=== PATIENT | male | born 1945 | race Caucasian/White ===

== ENCOUNTER 2020-10-23 11:09 | Inpatient (IN) ==
[2020-10-23] MEDS ORDERED: SODIUM CHLORIDE 0.9% 1,000 ML IV STA (12:42)
[2020-10-23] MEDS ORDERED: ONDANSETRON 4 MG/2 ML VIAL IV STA (12:42)
[2020-10-23 13:34] LABS: Basophils % 0.3 % (0.0-0.8); Eosinophils % 0.4 % (0.00-10.9); Hematocrit 26.2 VOL% (42.0-52.0); Hemoglobin 8.8 GM/DL (14.0-18.0); Immature Granulocytes % 1.3 %; Immature Granulocytes Absolute 0.13 #; Lymphocytes # 1.4 10*3/uL (1.4-4.0); Mean Corpuscular HGB Conc 33.6 GM/DL (32-36); Mean Corpuscular Volume 88.5 FL (87-102); Mean Platelet Volume 10.6 FL (9.6-12.0); Monocytes % 11.6 % (1.7-12.7); Neutrophils % 72.4 % (38.7-73.9); Platelet Count 276 T/CUMM (130-400); Red Blood Count 2.96 MC/CUMM (3.8-5.5); Red Cell Distribution Width 14.6 % (9.3-17.3); White Blood Count 10.2 T/CUMM (4-12)
[2020-10-23 13:44] LABS: INR 1.1; PT Patient Result 11.9 SECS (9.8-11.9)
[2020-10-23 14:05] LABS: Alanine Aminotransferase 15 U/L (16-61); Albumin 2.8 G/DL (3.4-5.0); Alkaline Phosphatase 70 U/L (45-117); Aspartate Amino Transferase 12 U/L (0-37); Bilirubin,Total < 0.39 MG/DL (0.2-1.0); Blood Urea Nitrogen 136 MG/DL (7-18); Calcium 6.6 MG/DL (8.5-10.1); Estimated Glom Filtration Rate 3 ML/MIN; Ferritin 470.3 ng/ml (26-388); Glucose 95 MG/DL (74-106); Osmolality,Calculated 326.1 MOS/KG (273-304); Total Protein 6.5 G/DL (6.4-8.3)
[2020-10-23] MEDS ORDERED: DEXTROSE 50% 25 GM/50 ML VIAL IV PRN (15:27)
[2020-10-23] MEDS ORDERED: GLUCAGON 1 MG VIAL IM PRN (15:27)
[2020-10-23] MEDS ORDERED: ONDANSETRON 4 MG/2 ML VIAL IV PRN (15:27)
[2020-10-23] MEDS: SODIUM BICARB INJ 50 MEQ in SODIUM CHLORIDE 0.45% 1,000 ML IV SCH (17:46)
[2020-10-23] MEDS: ENOXAPARIN 30 MG/0.3 ML SYRINGE SUBCUT SCH (21:15)
[2020-10-24] MEDS: SODIUM BICARB INJ 50 MEQ in SODIUM CHLORIDE 0.45% 1,000 ML IV SCH ×4 (00:01→21:26)
[2020-10-24 01:06] LABS: Bilirubin,Urine Negative (Negative); Blood, Urine Large mg/dL (Negative); Glucose,Urine (UA) 50 mg/dL (Negative); Ketones,Urine Negative (Negative); Nitrite,Urine Negative (Negative); Protein,Urine >=500 MG/DL; RBC,Urine 65897 /HPF (0-4); Urine Appearance CLOUDY (Clear); Urine Color Red (Yellow); Urine Specific Gravity 1.027 (1.001-1.035); Urine Urobilinogen < 2.0 EU/DL (0.2-1.0)
[2020-10-24 06:24] LABS: Basophils % 0.3 % (0.0-0.8); Eosinophils # 0.1 10*3/uL (0.0-0.87); Eosinophils % 1.4 % (0.00-10.9); Hematocrit 22.2 VOL% (42.0-52.0); Hemoglobin 7.5 GM/DL (14.0-18.0); Immature Granulocytes % 0.9 %; Immature Granulocytes Absolute 0.07 #; Lymphocytes # 1.7 10*3/uL (1.4-4.0); Mean Corpuscular HGB Conc 33.8 GM/DL (32-36); Mean Corpuscular Volume 87.7 FL (87-102); Monocytes % 13.2 % (1.7-12.7); Neutrophils % 62.2 % (38.7-73.9); Platelet Count 254 T/CUMM (130-400); Red Blood Count 2.53 MC/CUMM (3.8-5.5); Red Cell Distribution Width 14.5 % (9.3-17.3); White Blood Count 7.8 T/CUMM (4-12)
[2020-10-24 06:48] LABS: Albumin 2.5 G/DL (3.4-5.0); Bilirubin,Total 0.4 MG/DL (0.2-1.0); Calcium 6.2 MG/DL (8.5-10.1); Osmolality,Calculated 322.3 MOS/KG (273-304); Total Protein 5.6 G/DL (6.4-8.3)
[2020-10-24] MEDS: PANTOPRAZOLE 40 MG TABLET PO SCH (08:56)
[2020-10-24] MEDS: ASPIRIN EC 81 MG TABLET PO SCH (08:56)
[2020-10-24] MEDS: ATORVASTATIN 20 MG TABLET PO SCH (08:56)
[2020-10-24] MEDS: MULTIVITAMIN (CENTRUM) TABLET PO SCH (08:56)
[2020-10-24] MEDS: POTASSIUM GLUCONATE 500 MG TABLET PO SCH (08:56)
[2020-10-24] MEDS: FERROUS SULFATE 325 MG TABLET PO SCH (08:57)
[2020-10-24] MEDS: METOPROLOL SUCCINATE XL 100 MG TABLET PO SCH ×2 (08:57→09:29)
[2020-10-24 11:54] LABS: Hematocrit 21.8 VOL% (42.0-52.0); Hemoglobin 7.4 GM/DL (14.0-18.0)
[2020-10-24] MEDS ORDERED: MAGNESIUM SULF RIDER 4 GM in PREMIX 1 EACH IV PRN (13:30)
[2020-10-24] MEDS: POTASSIUM CHLORIDE RIDER 10 MEQ in PREMIX 1 EACH IV PRN ×4 (14:28→23:20)
[2020-10-24] MEDS: MAGNESIUM SULF RIDER 2 GM in PREMIX 1 EACH IV PRN ×2 (16:50→18:37)
[2020-10-24] MEDS: ENOXAPARIN 30 MG/0.3 ML SYRINGE SUBCUT SCH (21:23)
[2020-10-24] MEDS: ZINC OXIDE PASTE 113 GM TUBE TOP SCH ×2 (21:23→22:39)
[2020-10-25] MEDS: POTASSIUM CHLORIDE RIDER 10 MEQ in PREMIX 1 EACH IV PRN ×6 (00:29→15:01)
[2020-10-25] MEDS: SODIUM BICARB INJ 50 MEQ in SODIUM CHLORIDE 0.45% 1,000 ML IV SCH ×3 (04:38→20:24)
[2020-10-25 06:08] LABS: Basophils % 0.3 % (0.0-0.8); Eosinophils # 0.1 10*3/uL (0.0-0.87); Eosinophils % 1.2 % (0.00-10.9); Hematocrit 21.3 VOL% (42.0-52.0); Hemoglobin 7.3 GM/DL (14.0-18.0); Immature Granulocytes % 1.1 %; Immature Granulocytes Absolute 0.13 #; Lymphocytes # 1.3 10*3/uL (1.4-4.0); Lymphocytes % 11.6 % (21.2-54.2); Mean Corpuscular HGB Conc 34.3 GM/DL (32-36); Mean Corpuscular Volume 86.6 FL (87-102); Mean Platelet Volume 10.9 FL (9.6-12.0); Monocytes % 11.9 % (1.7-12.7); Neutrophils % 73.9 % (38.7-73.9); Platelet Count 252 T/CUMM (130-400); Red Blood Count 2.46 MC/CUMM (3.8-5.5); Red Cell Distribution Width 14.4 % (9.3-17.3); White Blood Count 11.5 T/CUMM (4-12)
[2020-10-25 07:14] LABS: Osmolality,Calculated 317.3 MOS/KG (273-304)
[2020-10-25] MEDS ORDERED: DIAZEPAM 5 MG TABLET PO ONE (07:20)
[2020-10-25 07:21] LABS: Calcium 5.8 MG/DL (8.5-10.1)
[2020-10-25] MEDS ORDERED: SODIUM CHLORIDE 0.9% 1,000 ML IV PRN (07:46)
[2020-10-25] MEDS: ZINC OXIDE PASTE 113 GM TUBE TOP SCH ×2 (09:00→20:28)
[2020-10-25] MEDS ORDERED: fentaNYL 100 MCG/2 ML VIAL IV ONE (09:00)
[2020-10-25] MEDS ORDERED: LEVOFLOXACIN INJ 500 MG in PREMIX 1 EACH IV ONE (10:00)
[2020-10-25] MEDS: MIDAZOLAM 2 MG/2 ML VIAL IV ONE ×2 (10:06→10:09)
[2020-10-25] MEDS: POTASSIUM GLUCONATE 500 MG TABLET PO SCH (11:04)
[2020-10-25] MEDS: ATORVASTATIN 20 MG TABLET PO SCH (11:04)
[2020-10-25] MEDS: ASPIRIN EC 81 MG TABLET PO SCH (11:04)
[2020-10-25] MEDS: MULTIVITAMIN (CENTRUM) TABLET PO SCH (11:04)
[2020-10-25] MEDS: PANTOPRAZOLE 40 MG TABLET PO SCH (11:04)
[2020-10-25] MEDS: FERROUS SULFATE 325 MG TABLET PO SCH (11:04)
[2020-10-25] MEDS: METOPROLOL SUCCINATE XL 100 MG TABLET PO SCH (11:12)
[2020-10-25] MEDS: CALCIUM (CARBONATE) 600 MG TABLET PO SCH (18:00)
[2020-10-25] MEDS: ENOXAPARIN 30 MG/0.3 ML SYRINGE SUBCUT SCH (20:25)
[2020-10-26] MEDS: SODIUM CHLORIDE 0.45% 1,000 ML IV SCH ×2 (02:23→13:41)
[2020-10-26] MEDS: SODIUM BICARB INJ 50 MEQ in SODIUM CHLORIDE 0.45% 1,000 ML IV SCH ×3 (02:29→17:52)
[2020-10-26] MEDS: POTASSIUM CHLORIDE RIDER 10 MEQ in PREMIX 1 EACH IV PRN ×9 (02:30→23:31)
[2020-10-26 06:30] LABS: Basophils % 0.2 % (0.0-0.8); Eosinophils # 0.1 10*3/uL (0.0-0.87); Eosinophils % 0.9 % (0.00-10.9); Hematocrit 22.6 VOL% (42.0-52.0); Hemoglobin 7.8 GM/DL (14.0-18.0); Immature Granulocytes % 0.9 %; Immature Granulocytes Absolute 0.08 #; Lymphocytes # 1.1 10*3/uL (1.4-4.0); Lymphocytes % 12.9 % (21.2-54.2); Mean Corpuscular HGB Conc 34.5 GM/DL (32-36); Mean Corpuscular Volume 86.9 FL (87-102); Mean Platelet Volume 11.3 FL (9.6-12.0); Monocytes % 13.1 % (1.7-12.7); Platelet Count 212 T/CUMM (130-400); Red Cell Distribution Width 14.2 % (9.3-17.3); White Blood Count 8.5 T/CUMM (4-12)
[2020-10-26 06:33] LABS: Osmolality,Calculated 312.4 MOS/KG (273-304)
[2020-10-26 06:41] LABS: Calcium 5.4 MG/DL (8.5-10.1)
[2020-10-26] MEDS: ASPIRIN EC 81 MG TABLET PO SCH (08:44)
[2020-10-26] MEDS: ATORVASTATIN 20 MG TABLET PO SCH (08:45)
[2020-10-26] MEDS: FERROUS SULFATE 325 MG TABLET PO SCH (08:45)
[2020-10-26] MEDS: CALCIUM (CARBONATE) 600 MG TABLET PO SCH ×2 (08:45→17:52)
[2020-10-26] MEDS: PANTOPRAZOLE 40 MG TABLET PO SCH (08:45)
[2020-10-26] MEDS: MULTIVITAMIN (CENTRUM) TABLET PO SCH (08:45)
[2020-10-26] MEDS: POTASSIUM GLUCONATE 500 MG TABLET PO SCH (08:45)
[2020-10-26] MEDS: MAGNESIUM SULF RIDER 2 GM in PREMIX 1 EACH IV PRN (09:55)
[2020-10-26] MEDS: METOPROLOL SUCCINATE XL 100 MG TABLET PO SCH (10:14)
[2020-10-26] MEDS: ZINC OXIDE PASTE 113 GM TUBE TOP SCH ×2 (10:14→21:06)
[2020-10-26] MEDS ORDERED: SODIUM CHLORIDE 0.9% IV ONE (11:00)
[2020-10-26] MEDS ORDERED: CALCIUM GLUCONATE IV ONE (11:00)
[2020-10-26] MEDS: ENOXAPARIN 30 MG/0.3 ML SYRINGE SUBCUT SCH (21:06)
[2020-10-27] MEDS: SODIUM BICARB INJ 50 MEQ in SODIUM CHLORIDE 0.45% 1,000 ML IV SCH ×3 (00:27→13:57)
[2020-10-27] MEDS: POTASSIUM CHLORIDE RIDER 10 MEQ in PREMIX 1 EACH IV PRN (00:27)
[2020-10-27 05:55] LABS: Basophils % 0.2 % (0.0-0.8); Eosinophils # 0.2 10*3/uL (0.0-0.87); Eosinophils % 1.5 % (0.00-10.9); Hematocrit 19.8 VOL% (42.0-52.0); Hemoglobin 6.6 GM/DL (14.0-18.0); Immature Granulocytes % 1.1 %; Immature Granulocytes Absolute 0.11 #; Lymphocytes # 1.2 10*3/uL (1.4-4.0); Mean Corpuscular HGB Conc 33.3 GM/DL (32-36); Mean Corpuscular Volume 87.6 FL (87-102); Mean Platelet Volume 11.3 FL (9.6-12.0); Monocytes % 13.9 % (1.7-12.7); Neutrophils % 71.3 % (38.7-73.9); Platelet Count 195 T/CUMM (130-400); Red Blood Count 2.26 MC/CUMM (3.8-5.5); Red Cell Distribution Width 14.2 % (9.3-17.3); White Blood Count 9.7 T/CUMM (4-12)
[2020-10-27 06:17] LABS: Alanine Aminotransferase < 9 U/L (16-61); Albumin 1.9 G/DL (3.4-5.0); Alkaline Phosphatase 54 U/L (45-117); Aspartate Amino Transferase 13 U/L (0-37); Blood Urea Nitrogen 93 MG/DL (7-18); Calcium 6.2 MG/DL (8.5-10.1); Estimated Glom Filtration Rate 6 ML/MIN; Glucose 94 MG/DL (74-106); Osmolality,Calculated 307.4 MOS/KG (273-304); Total Protein 4.7 G/DL (6.4-8.3)
[2020-10-27] MEDS ORDERED: SODIUM CHLORIDE 0.9% 1,000 ML IV PRN (08:05)
[2020-10-27] MEDS: MULTIVITAMIN (CENTRUM) TABLET PO SCH (09:20)
[2020-10-27] MEDS: CALCIUM (CARBONATE) 600 MG TABLET PO SCH ×2 (09:21→16:51)
[2020-10-27] MEDS: ATORVASTATIN 20 MG TABLET PO SCH (09:21)
[2020-10-27] MEDS: POTASSIUM GLUCONATE 500 MG TABLET PO SCH (09:21)
[2020-10-27] MEDS: FERROUS SULFATE 325 MG TABLET PO SCH (09:21)
[2020-10-27] MEDS: PANTOPRAZOLE 40 MG TABLET PO SCH (09:21)
[2020-10-27] MEDS: ZINC OXIDE PASTE 113 GM TUBE TOP SCH ×2 (09:22→21:56)
[2020-10-27] MEDS: ASPIRIN EC 81 MG TABLET PO SCH (09:22)
[2020-10-27] MEDS: SODIUM CHLORIDE 0.45% 1,000 ML IV SCH (09:23)
[2020-10-27] MEDS: METOPROLOL SUCCINATE XL 100 MG TABLET PO SCH (09:23)
[2020-10-27 19:27] LABS: Hematocrit 26.3 VOL% (42.0-52.0); Hemoglobin 8.9 GM/DL (14.0-18.0)
[2020-10-27] MEDS: ENOXAPARIN 30 MG/0.3 ML SYRINGE SUBCUT SCH (21:56)
[2020-10-27] MEDS: ACETAMINOPHEN 325 MG TABLET PO PRN (22:00)
[2020-10-28 06:42] LABS: Basophils % 0.3 % (0.0-0.8); Eosinophils # 0.2 10*3/uL (0.0-0.87); Eosinophils % 2.2 % (0.00-10.9); Hematocrit 25.5 VOL% (42.0-52.0); Hemoglobin 8.6 GM/DL (14.0-18.0); Immature Granulocytes % 1.1 %; Immature Granulocytes Absolute 0.11 #; Lymphocytes # 1.3 10*3/uL (1.4-4.0); Lymphocytes % 12.7 % (21.2-54.2); Mean Corpuscular HGB Conc 33.7 GM/DL (32-36); Mean Corpuscular Volume 87.6 FL (87-102); Mean Platelet Volume 11.3 FL (9.6-12.0); Monocytes % 14.1 % (1.7-12.7); Neutrophils % 69.6 % (38.7-73.9); Platelet Count 192 T/CUMM (130-400); Red Blood Count 2.91 MC/CUMM (3.8-5.5); Red Cell Distribution Width 14.5 % (9.3-17.3); White Blood Count 10.1 T/CUMM (4-12)
[2020-10-28 07:20] LABS: Alanine Aminotransferase < 9 U/L (16-61); Albumin 1.8 G/DL (3.4-5.0); Alkaline Phosphatase 62 U/L (45-117); Aspartate Amino Transferase 12 U/L (0-37); Bilirubin,Total < 0.39 MG/DL (0.2-1.0); Blood Urea Nitrogen 91 MG/DL (7-18); Calcium 6.3 MG/DL (8.5-10.1); Estimated Glom Filtration Rate 6 ML/MIN; Glucose 92 MG/DL (74-106); Osmolality,Calculated 308.3 MOS/KG (273-304); Total Protein 4.7 G/DL (6.4-8.3)
[2020-10-28] MEDS: SODIUM BICARB INJ 50 MEQ in SODIUM CHLORIDE 0.45% 1,000 ML IV SCH ×3 (07:29→17:23)
[2020-10-28] MEDS: ZINC OXIDE PASTE 113 GM TUBE TOP SCH ×2 (09:47→21:30)
[2020-10-28] MEDS: METOPROLOL SUCCINATE XL 100 MG TABLET PO SCH (12:18)
[2020-10-28] MEDS: ATORVASTATIN 20 MG TABLET PO SCH (12:18)
[2020-10-28] MEDS: POTASSIUM CHLORIDE RIDER 10 MEQ in PREMIX 1 EACH IV PRN ×2 (12:19→17:22)
[2020-10-28] MEDS: CALCIUM (CARBONATE) 600 MG TABLET PO SCH ×2 (16:05→17:18)
[2020-10-28] MEDS: MULTIVITAMIN (CENTRUM) TABLET PO SCH (16:05)
[2020-10-28] MEDS: PANTOPRAZOLE 40 MG TABLET PO SCH (16:06)
[2020-10-28] MEDS: FERROUS SULFATE 325 MG TABLET PO SCH (16:06)
[2020-10-28] MEDS: POTASSIUM GLUCONATE 500 MG TABLET PO SCH (16:06)
[2020-10-29] MEDS: POTASSIUM CHLORIDE RIDER 10 MEQ in PREMIX 1 EACH IV PRN ×2 (00:01→01:53)
[2020-10-29] MEDS: SODIUM BICARB INJ 50 MEQ in SODIUM CHLORIDE 0.45% 1,000 ML IV SCH ×2 (00:18→07:53)
[2020-10-29 06:20] LABS: Basophils % 0.3 % (0.0-0.8); Eosinophils # 0.3 10*3/uL (0.0-0.87); Eosinophils % 2.5 % (0.00-10.9); Hematocrit 23.5 VOL% (42.0-52.0); Hemoglobin 7.9 GM/DL (14.0-18.0); Immature Granulocytes % 1.3 %; Immature Granulocytes Absolute 0.13 #; Lymphocytes # 1.3 10*3/uL (1.4-4.0); Lymphocytes % 13.2 % (21.2-54.2); Mean Corpuscular HGB Conc 33.6 GM/DL (32-36); Mean Platelet Volume 10.9 FL (9.6-12.0); Monocytes % 13.4 % (1.7-12.7); Neutrophils % 69.3 % (38.7-73.9); Platelet Count 197 T/CUMM (130-400); Red Blood Count 2.67 MC/CUMM (3.8-5.5); Red Cell Distribution Width 14.6 % (9.3-17.3)
[2020-10-29 07:09] LABS: Alanine Aminotransferase < 9 U/L (16-61); Albumin 1.6 G/DL (3.4-5.0); Alkaline Phosphatase 50 U/L (45-117); Aspartate Amino Transferase 15 U/L (0-37); Blood Urea Nitrogen 84 MG/DL (7-18); Estimated Glom Filtration Rate 6 ML/MIN; Glucose 93 MG/DL (74-106); Osmolality,Calculated 304.4 MOS/KG (273-304); Total Protein 4.5 G/DL (6.4-8.3)
[2020-10-29] MEDS: CALCIUM (CARBONATE) 600 MG TABLET PO SCH ×2 (07:49→18:45)
[2020-10-29] MEDS: METOPROLOL SUCCINATE XL 100 MG TABLET PO SCH (08:49)
[2020-10-29] MEDS: MULTIVITAMIN (CENTRUM) TABLET PO SCH (08:50)
[2020-10-29] MEDS: POTASSIUM GLUCONATE 500 MG TABLET PO SCH (08:50)
[2020-10-29] MEDS: ATORVASTATIN 20 MG TABLET PO SCH (08:50)
[2020-10-29] MEDS: PANTOPRAZOLE 40 MG TABLET PO SCH (08:50)
[2020-10-29] MEDS: FERROUS SULFATE 325 MG TABLET PO SCH (08:50)
[2020-10-29 13:59] LABS: Hematocrit 25.4 VOL% (42.0-52.0); Hemoglobin 8.5 GM/DL (14.0-18.0)
[2020-10-29] MEDS: ZINC OXIDE PASTE 113 GM TUBE TOP SCH ×2 (16:41→20:53)
[2020-10-30] MEDS: SODIUM BICARB INJ 50 MEQ in SODIUM CHLORIDE 0.45% 1,000 ML IV SCH ×3 (03:27→17:06)
[2020-10-30 05:56] LABS: Basophils % 0.2 % (0.0-0.8); Eosinophils # 0.3 10*3/uL (0.0-0.87); Eosinophils % 2.8 % (0.00-10.9); Hematocrit 25.3 VOL% (42.0-52.0); Hemoglobin 8.3 GM/DL (14.0-18.0); Immature Granulocytes % 1.2 %; Immature Granulocytes Absolute 0.12 #; Lymphocytes # 1.3 10*3/uL (1.4-4.0); Lymphocytes % 13.7 % (21.2-54.2); Mean Corpuscular HGB Conc 32.8 GM/DL (32-36); Mean Corpuscular Volume 90.4 FL (87-102); Mean Platelet Volume 11.1 FL (9.6-12.0); Neutrophils % 69.1 % (38.7-73.9); Platelet Count 213 T/CUMM (130-400); Red Cell Distribution Width 14.5 % (9.3-17.3); White Blood Count 9.8 T/CUMM (4-12)
[2020-10-30 06:24] LABS: Calcium 6.5 MG/DL (8.5-10.1); Osmolality,Calculated 307.1 MOS/KG (273-304)
[2020-10-30] MEDS: ATORVASTATIN 20 MG TABLET PO SCH (08:39)
[2020-10-30] MEDS: CALCIUM (CARBONATE) 600 MG TABLET PO SCH ×2 (08:39→17:06)
[2020-10-30] MEDS: FERROUS SULFATE 325 MG TABLET PO SCH (08:40)
[2020-10-30] MEDS: POTASSIUM GLUCONATE 500 MG TABLET PO SCH (08:40)
[2020-10-30] MEDS: METOPROLOL SUCCINATE XL 100 MG TABLET PO SCH (08:40)
[2020-10-30] MEDS: PANTOPRAZOLE 40 MG TABLET PO SCH (08:40)
[2020-10-30] MEDS: MULTIVITAMIN (CENTRUM) TABLET PO SCH (08:40)
[2020-10-30] MEDS: ZINC OXIDE PASTE 113 GM TUBE TOP SCH ×2 (08:41→21:28)
[2020-10-31] MEDS: SODIUM BICARB INJ 50 MEQ in SODIUM CHLORIDE 0.45% 1,000 ML IV SCH ×2 (00:16→18:15)
[2020-10-31 06:18] LABS: Basophils % 0.4 % (0.0-0.8); Eosinophils # 0.3 10*3/uL (0.0-0.87); Eosinophils % 2.7 % (0.00-10.9); Hematocrit 26.3 VOL% (42.0-52.0); Hemoglobin 8.5 GM/DL (14.0-18.0); Immature Granulocytes % 1.1 %; Lymphocytes # 1.1 10*3/uL (1.4-4.0); Lymphocytes % 11.5 % (21.2-54.2); Mean Corpuscular HGB Conc 32.3 GM/DL (32-36); Mean Corpuscular Volume 91.3 FL (87-102); Mean Platelet Volume 10.4 FL (9.6-12.0); Monocytes % 13.6 % (1.7-12.7); Neutrophils % 70.7 % (38.7-73.9); Platelet Count 244 T/CUMM (130-400); Red Blood Count 2.88 MC/CUMM (3.8-5.5); Red Cell Distribution Width 14.3 % (9.3-17.3); White Blood Count 9.5 T/CUMM (4-12)
[2020-10-31] MEDS ORDERED: cefTRIAXone 1,000 MG in SYRINGE 1 EACH IV ONE (07:36)
[2020-10-31] MEDS ORDERED: SODIUM PHOSPHATE ENEMA 133 ML BOTTLE RECTAL ONE (08:00)
[2020-10-31] MEDS: POTASSIUM GLUCONATE 500 MG TABLET PO SCH (08:38)
[2020-10-31] MEDS: ATORVASTATIN 20 MG TABLET PO SCH (08:38)
[2020-10-31] MEDS: METOPROLOL SUCCINATE XL 100 MG TABLET PO SCH (08:38)
[2020-10-31] MEDS: CALCIUM (CARBONATE) 600 MG TABLET PO SCH ×2 (08:38→18:15)
[2020-10-31] MEDS: FERROUS SULFATE 325 MG TABLET PO SCH (08:38)
[2020-10-31] MEDS: MULTIVITAMIN (CENTRUM) TABLET PO SCH (08:38)
[2020-10-31] MEDS: PANTOPRAZOLE 40 MG TABLET PO SCH (08:38)
[2020-10-31] MEDS: ZINC OXIDE PASTE 113 GM TUBE TOP SCH ×2 (08:39→20:57)
[2020-10-31] MEDS: MAGNESIUM SULF RIDER 2 GM in PREMIX 1 EACH IV PRN (10:12)
[2020-10-31] MEDS ORDERED: LIDOCAINE 2% TOP JELLY 20 ML VIAL INTRAURETH ONE (11:07)
[2020-10-31] MEDS ORDERED: LIDOCAINE 2% TOP JELLY 5 ML TUBE TOP ONE (11:09)
[2020-10-31] MEDS ORDERED: LIDOCAINE 2% 5 ML VIAL ONE ×2 (11:24→12:34)
[2020-10-31] MEDS ORDERED: fentaNYL 100 MCG/2 ML VIAL ONE (11:24)
[2020-10-31] MEDS ORDERED: propofoL 200 MG/20 ML VIAL IV ONE ×2 (11:24→11:46)
[2020-10-31] MEDS ORDERED: ePHEDrine 50 MG/ML VIAL ONE (11:46)
[2020-10-31] MEDS: MENTHOL/ZINC OXIDE OINT 71 GM JAR TOP SCH ×2 (16:01→20:57)
[2020-10-31] MEDS: BICALUTAMIDE 50 MG TABLET PO SCH (16:01)
[2020-11-01 07:56] LABS: Basophils # 0.1 10*3/uL (0.0-0.2); Basophils % 0.5 % (0.0-0.8); Eosinophils # 0.2 10*3/uL (0.0-0.87); Eosinophils % 2.3 % (0.00-10.9); Hematocrit 24.1 VOL% (42.0-52.0); Hemoglobin 7.9 GM/DL (14.0-18.0); Immature Granulocytes % 0.9 %; Immature Granulocytes Absolute 0.09 #; Lymphocytes # 1.3 10*3/uL (1.4-4.0); Mean Corpuscular HGB Conc 32.8 GM/DL (32-36); Mean Corpuscular Volume 90.6 FL (87-102); Mean Platelet Volume 10.2 FL (9.6-12.0); Monocytes % 12.9 % (1.7-12.7); Neutrophils % 70.4 % (38.7-73.9); Platelet Count 244 T/CUMM (130-400); Red Blood Count 2.66 MC/CUMM (3.8-5.5); White Blood Count 9.9 T/CUMM (4-12)
[2020-11-01 08:24] LABS: Calcium 7.1 MG/DL (8.5-10.1); Osmolality,Calculated 300.3 MOS/KG (273-304)
[2020-11-01] MEDS: BICALUTAMIDE 50 MG TABLET PO SCH (10:49)
[2020-11-01] MEDS: CALCIUM (CARBONATE) 600 MG TABLET PO SCH ×2 (10:49→19:33)
[2020-11-01] MEDS: MULTIVITAMIN (CENTRUM) TABLET PO SCH (10:50)
[2020-11-01] MEDS: ATORVASTATIN 20 MG TABLET PO SCH (10:50)
[2020-11-01] MEDS: PANTOPRAZOLE 40 MG TABLET PO SCH (10:50)
[2020-11-01] MEDS: FERROUS SULFATE 325 MG TABLET PO SCH (10:50)
[2020-11-01] MEDS: METOPROLOL SUCCINATE XL 100 MG TABLET PO SCH (10:50)
[2020-11-01] MEDS: POTASSIUM GLUCONATE 500 MG TABLET PO SCH (10:53)
[2020-11-01] MEDS: MENTHOL/ZINC OXIDE OINT 71 GM JAR TOP SCH ×2 (10:53→21:05)
[2020-11-01] MEDS: ZINC OXIDE PASTE 113 GM TUBE TOP SCH ×2 (10:53→21:05)
[2020-11-01] MEDS: SODIUM BICARB INJ 50 MEQ in SODIUM CHLORIDE 0.45% 1,000 ML IV SCH (11:00)
[2020-11-02 05:57] LABS: Basophils % 0.4 % (0.0-0.8); Eosinophils # 0.3 10*3/uL (0.0-0.87); Eosinophils % 2.6 % (0.00-10.9); Hematocrit 23.4 VOL% (42.0-52.0); Hemoglobin 7.6 GM/DL (14.0-18.0); Immature Granulocytes % 1.5 %; Immature Granulocytes Absolute 0.15 #; Lymphocytes # 1.4 10*3/uL (1.4-4.0); Lymphocytes % 14.8 % (21.2-54.2); Mean Corpuscular HGB Conc 32.5 GM/DL (32-36); Mean Corpuscular Volume 91.1 FL (87-102); Mean Platelet Volume 10.3 FL (9.6-12.0); Monocytes % 12.2 % (1.7-12.7); Neutrophils % 68.5 % (38.7-73.9); Platelet Count 245 T/CUMM (130-400); Red Blood Count 2.57 MC/CUMM (3.8-5.5); Red Cell Distribution Width 13.8 % (9.3-17.3); White Blood Count 9.7 T/CUMM (4-12)
[2020-11-02 06:22] LABS: Calcium 7.2 MG/DL (8.5-10.1); Osmolality,Calculated 300.4 MOS/KG (273-304)
[2020-11-02] MEDS ORDERED: SODIUM CHLORIDE 0.9% 1,000 ML IV PRN (09:00)
[2020-11-02] MEDS ORDERED: FUROSEMIDE 20 MG/2 ML VIAL IV PRN (10:42)
[2020-11-02] MEDS: METOPROLOL SUCCINATE XL 100 MG TABLET PO SCH (11:20)
[2020-11-02] MEDS: CALCIUM (CARBONATE) 600 MG TABLET PO SCH ×2 (11:21→18:56)
[2020-11-02] MEDS: PANTOPRAZOLE 40 MG TABLET PO SCH (11:21)
[2020-11-02] MEDS: FERROUS SULFATE 325 MG TABLET PO SCH (11:21)
[2020-11-02] MEDS: POTASSIUM GLUCONATE 500 MG TABLET PO SCH (11:21)
[2020-11-02] MEDS: MULTIVITAMIN (CENTRUM) TABLET PO SCH (11:21)
[2020-11-02] MEDS: ATORVASTATIN 20 MG TABLET PO SCH (11:21)
[2020-11-02] MEDS: BICALUTAMIDE 50 MG TABLET PO SCH (11:21)
[2020-11-02] MEDS: MENTHOL/ZINC OXIDE OINT 71 GM JAR TOP SCH ×2 (11:22→22:24)
[2020-11-02] MEDS: ZINC OXIDE PASTE 113 GM TUBE TOP SCH ×2 (11:22→22:24)
[2020-11-03 05:51] LABS: Basophils # 0.1 10*3/uL (0.0-0.2); Basophils % 0.6 % (0.0-0.8); Eosinophils # 0.2 10*3/uL (0.0-0.87); Eosinophils % 2.6 % (0.00-10.9); Immature Granulocytes % 1.1 %; Lymphocytes # 1.3 10*3/uL (1.4-4.0); Lymphocytes % 13.8 % (21.2-54.2); Mean Corpuscular HGB Conc 32.3 GM/DL (32-36); Mean Corpuscular Volume 89.8 FL (87-102); Mean Platelet Volume 10.2 FL (9.6-12.0); Monocytes % 13.3 % (1.7-12.7); Neutrophils % 68.6 % (38.7-73.9); Platelet Count 244 T/CUMM (130-400); Red Cell Distribution Width 14.1 % (9.3-17.3); White Blood Count 9.3 T/CUMM (4-12)
[2020-11-03 06:05] LABS: Red Blood Count 3.34 MC/CUMM (3.8-5.5)
[2020-11-03 06:06] LABS: Hemoglobin 9.7 GM/DL (14.0-18.0)
[2020-11-03 06:13] LABS: Albumin 1.7 G/DL (3.4-5.0); Bilirubin,Total 1.4 MG/DL (0.2-1.0); Calcium 7.6 MG/DL (8.5-10.1); Osmolality,Calculated 300.3 MOS/KG (273-304); Total Protein 4.9 G/DL (6.4-8.3)
[2020-11-03] MEDS: METOPROLOL SUCCINATE XL 100 MG TABLET PO SCH (11:15)
[2020-11-03] MEDS: POTASSIUM GLUCONATE 500 MG TABLET PO SCH (11:16)
[2020-11-03] MEDS: ATORVASTATIN 20 MG TABLET PO SCH (11:16)
[2020-11-03] MEDS: BICALUTAMIDE 50 MG TABLET PO SCH (11:16)
[2020-11-03] MEDS: MULTIVITAMIN (CENTRUM) TABLET PO SCH (11:16)
[2020-11-03] MEDS: PANTOPRAZOLE 40 MG TABLET PO SCH (11:16)
[2020-11-03] MEDS: FERROUS SULFATE 325 MG TABLET PO SCH (11:16)
[2020-11-03] MEDS: CALCIUM (CARBONATE) 600 MG TABLET PO SCH ×2 (11:23→17:39)
[2020-11-03] MEDS: SODIUM BICARB INJ 50 MEQ in SODIUM CHLORIDE 0.45% 1,000 ML IV SCH (11:23)
[2020-11-03] MEDS: MENTHOL/ZINC OXIDE OINT 71 GM JAR TOP SCH ×2 (11:33→22:26)
[2020-11-03] MEDS: ZINC OXIDE PASTE 113 GM TUBE TOP SCH ×2 (11:33→22:26)
[2020-11-03] MEDS ORDERED: SODIUM BICARB INJ 50 MEQ in SODIUM CHLORIDE 0.45% 1,000 ML IV SCH (18:00)
[2020-11-04] MEDS: ACETAMINOPHEN 325 MG TABLET PO PRN ×2 (00:27→15:44)
[2020-11-04] MEDS: METOPROLOL SUCCINATE XL 100 MG TABLET PO SCH (09:09)
[2020-11-04] MEDS: CALCIUM (CARBONATE) 600 MG TABLET PO SCH ×2 (09:09→16:05)
[2020-11-04] MEDS: FERROUS SULFATE 325 MG TABLET PO SCH (09:09)
[2020-11-04] MEDS: ATORVASTATIN 20 MG TABLET PO SCH (09:09)
[2020-11-04] MEDS: MULTIVITAMIN (CENTRUM) TABLET PO SCH (09:09)
[2020-11-04] MEDS: ZINC OXIDE PASTE 113 GM TUBE TOP SCH ×2 (09:10→20:40)
[2020-11-04] MEDS: MENTHOL/ZINC OXIDE OINT 71 GM JAR TOP SCH ×2 (09:10→20:40)
[2020-11-04] MEDS: PANTOPRAZOLE 40 MG TABLET PO SCH (09:10)
[2020-11-04] MEDS: BICALUTAMIDE 50 MG TABLET PO SCH (09:10)
[2020-11-04] MEDS: POTASSIUM GLUCONATE 500 MG TABLET PO SCH (09:10)
[2020-11-05 07:13] LABS: Basophils # 0.1 10*3/uL (0.0-0.2); Basophils % 0.7 % (0.0-0.8); Eosinophils # 0.3 10*3/uL (0.0-0.87); Eosinophils % 3.5 % (0.00-10.9); Hematocrit 31.8 VOL% (42.0-52.0); Hemoglobin 10.3 GM/DL (14.0-18.0); Immature Granulocytes % 1.4 %; Immature Granulocytes Absolute 0.11 #; Lymphocytes # 1.2 10*3/uL (1.4-4.0); Lymphocytes % 15.3 % (21.2-54.2); Mean Corpuscular HGB Conc 32.4 GM/DL (32-36); Mean Corpuscular Volume 90.3 FL (87-102); Mean Platelet Volume 10.1 FL (9.6-12.0); Monocytes % 12.1 % (1.7-12.7); Platelet Count 287 T/CUMM (130-400); Red Blood Count 3.52 MC/CUMM (3.8-5.5); Red Cell Distribution Width 13.9 % (9.3-17.3); White Blood Count 7.6 T/CUMM (4-12)
[2020-11-05 07:31] LABS: Bilirubin,Total 0.5 MG/DL (0.2-1.0); Calcium 7.9 MG/DL (8.5-10.1); Osmolality,Calculated 299.3 MOS/KG (273-304); Total Protein 5.2 G/DL (6.4-8.3)
[2020-11-05 07:34] VITALS: BP 150/62
[2020-11-05] MEDS: ATORVASTATIN 20 MG TABLET PO SCH (08:06)
[2020-11-05] MEDS: CALCIUM (CARBONATE) 600 MG TABLET PO SCH (08:06)
[2020-11-05] MEDS: MULTIVITAMIN (CENTRUM) TABLET PO SCH (08:06)
[2020-11-05] MEDS: METOPROLOL SUCCINATE XL 100 MG TABLET PO SCH (08:06)
[2020-11-05] MEDS: BICALUTAMIDE 50 MG TABLET PO SCH (08:06)
[2020-11-05] MEDS: FERROUS SULFATE 325 MG TABLET PO SCH (08:07)
[2020-11-05] MEDS: PANTOPRAZOLE 40 MG TABLET PO SCH (08:07)
[2020-11-05] MEDS: MENTHOL/ZINC OXIDE OINT 71 GM JAR TOP SCH (08:07)
[2020-11-05] MEDS: ZINC OXIDE PASTE 113 GM TUBE TOP SCH (08:08)
[2020-11-05] MEDS: POTASSIUM GLUCONATE 500 MG TABLET PO SCH (09:39)
== END 2020-11-05 10:00 | disposition home or self-care (01) | DRG 375 ==
LOC: N.ED 11:09 → N.EDINP 15:27 → SUATTDRO 15:27 → N.3E 16:54
PROVIDERS: ADMIT Internal Medicine; ATTEND Internal Medicine